=== PATIENT | male | born 1970 | race Two or more races ===

== ENCOUNTER 2023-01-22 21:53 | Emergency (ER) | payer BC, OTHER ==
[~2023-01-22] VITALS: Ht 172.7 cm; Wt 86.0 kg
[2023-01-22 23:22] LABS: Basophils # (auto) 0.1 10 ^3/uL (0-0.2); Basophils % (auto) 0.7 % (0.0-2.0); Eosinophils # (auto) 0.1 10 ^3/uL (0-0.8); Eosinophils % (auto) 0.5 % (0.0-7.0); Hematocrit 46.2 % (41.0-53.0); Hemoglobin 15.5 g/dL (13.5-17.5); Mean Corpuscular Hemoglobin 29.2 pg (28.0-32.0); Mean Corpuscular Hgb Conc. 33.7 g/dL (32.0-36.0); Mean Corpuscular Volume 86.9 fL (80.0-100.0); Monocytes # (auto) 0.7 10 ^3/uL (0-1.3); Monocytes % (auto) 4.2 % (0.0-12.0); Neutrophils # (auto) 13.8 10 ^3/uL (1.6-8.6); Neutrophils % (auto) 82.6 % (37.0-80.0); Nucleated Red Blood Cells % 0.1 %; Red Blood Cells 5.31 10^6/uL (4.5-5.90); Red Cell Distribution Width 13.4 % (11.8-14.3); White Blood Cell 16.7 10^3/uL (4.4-10.8)
[2023-01-22 23:27] LABS: Urine Bacteria NONE SEEN /hpf (None Seen); Urine Blood Negative /uL (Negative); Urine Mucus FEW (None Seen); Urine Specific Gravity 1.026 (1.001-1.035); Urine WBC 10 /hpf (0 - 3)
[2023-01-22 23:43] LABS: BUN/Creatinine Ratio 20.4 (10.0-20.0); Calcium 9.7 mg/dL (8.5-10.1)
[2023-01-22 23:45] LABS: Bilirubin, Total 0.4 mg/dL (0.2-1.0); Total Protein 7.6 g/dL (6.4-8.2)
[2023-01-23] MEDS ORDERED: ONDA-144 PO (01:12)
[2023-01-23] MEDS ORDERED: PANT40TA2 PO (01:12)
[2023-01-23] MEDS ORDERED: DICY10CA PO (01:12)
[2023-01-23 02:00] VITALS: BP 118/70
[2023-01-23] MEDS ORDERED: ONDANSETRON HCL 4 MG/2 ML VIAL IV ONE (02:00)
== END 2023-01-23 02:03 | disposition home or self-care (01) ==
LOC: ER 21:53
DX: R10.84 Generalized abdominal pain (principal); E11.9 Type 2 diabetes mellitus without complications; E78.5 Hyperlipidemia, unspecified; I10 Essential (primary) hypertension
CPT/HCPCS: 36415; 74176; 80053; 81001; 82962; 83605; 83690; 84484; 85025; 93005; 96374; 99285; J2405